=== PATIENT | female | born 1990 | race Caucasian/White ===

== ENCOUNTER 2021-05-08 09:53 | Outpatient (CLI) | payer BC ==
[2021-05-08 14:49] LABS: Mean Corpuscular HGB CONC 32.1 g/dL (32.0-36.0); Mean Corpuscular Hemoglobin 29.3 pg (27.0-33.0); Mean Corpuscular Volume 91.4 fl (81.6-98.3); Platelet Count 271 10x3/uL (150-450); RBC Distribution Width 15.4 % (11.5-14.5); Red Blood Cell (RBC) Count 4.09 10x6/uL (3.90-5.03); White Blood Cell (WBC) Count 10.7 10x3/uL (3.5-10.5)
[2021-05-08 15:22] LABS: Hep B Surf Ag Non-Reactive S/CO (NonReactive); Syphilis Antibody Nonreactive (Nonreactive); Syphilis Antibody Index 0.05 S/CO (<1.00 Non-Reactive)
[2021-05-08 15:40] LABS: HBSAg Index 0.23 S/CO (0-0.99)
[2021-05-08 23:46] LABS: SARS-CoV-2 PCR by NAA Not Detected (NotDetected)
== END 2021-05-08 09:54 | disposition home or self-care (01) ==
LOC: CSHLAB 09:53
PROVIDERS: ATTEND Obstetrics & Gynecology
DX: Z01.812 Encounter for preprocedural laboratory examination (principal); Z20.822 Contact with and (suspected) exposure to COVID-19
CPT/HCPCS: 85027; 86762; 86780; 86900; 86901; 87340; U0003; U0005

== ENCOUNTER 2021-05-12 05:38 | Inpatient (IN) | payer BC ==
[2021-05-12] MEDS ORDERED: Promethazine HCl 25 MG/ML VIAL IM PRN ×2 (05:42→09:36)
[2021-05-12] MEDS ORDERED: Ondansetron PF 4 MG/2 ML Vial IVP PRN ×3 (05:42→11:50)
[2021-05-12] MEDS ORDERED: Lactated Ringer's 1,000 ML IV SCH (05:42)
[2021-05-12] MEDS ORDERED: Famotidine/PF 20 mg/2ml Vial SLOW IVP PRN (05:42)
[2021-05-12] MEDS ORDERED: Bicitra 30 ML UDCUP PO PRN (05:42)
[2021-05-12] MEDS ORDERED: hydrALAZINE 20 MG/ML VIAL SLOW IVP PRN ×2 (05:42→11:50)
[2021-05-12] MEDS ORDERED: ceFAZolin 2 GM/Dextrose 50 ML 2 GM in Premix Bag 1 BAG IVPB SCH (05:45)
[2021-05-12 05:46] VITALS: BMI 50.9
[2021-05-12] MEDS ORDERED: Oxytocin 10 UNITS/ML VIAL ONE (07:21)
[2021-05-12] MEDS ORDERED: Morphine PF 10 MG/10 ML VIAL ONE (07:21)
[2021-05-12 07:22] LABS: Hemoglobin 10.9 g/dL (12.0-15.5); Mean Corpuscular HGB CONC 32.1 g/dL (32.0-36.0); Mean Corpuscular Hemoglobin 29.5 pg (27.0-33.0); Mean Corpuscular Volume 92.1 fl (81.6-98.3); Mean Platelet Volume 11.3 fl (7.4-10.4); Platelet Count 231 10x3/uL (150-450); RBC Distribution Width 15.1 % (11.5-14.5); Red Blood Cell (RBC) Count 3.69 10x6/uL (3.90-5.03); White Blood Cell (WBC) Count 9.9 10x3/uL (3.5-10.5)
[2021-05-12] MEDS ORDERED: PHENYLEPHRINE-NS 100 MCG/ML 10 ML SYRINGE ONE (07:22)
[2021-05-12] MEDS ORDERED: Ondansetron PF 4 MG/2 ML Vial ONE (08:10)
[2021-05-12] MEDS ORDERED: Lidocaine 1% PF 5 ML VIAL ONE (08:31)
[2021-05-12] MEDS ORDERED: Dexamethasone 4 mg/ml Vial ONE (08:41)
[2021-05-12] MEDS ORDERED: Ketorolac Tromethamine 30 MG/ML VIAL ONE (08:43)
[2021-05-12] MEDS ORDERED: diphenhydrAMINE 50 MG/ML VIAL IVP PRN (09:36)
[2021-05-12] MEDS ORDERED: Meperidine HCl/PF 25 MG/ML VIAL SLOW IVP PRN (09:36)
[2021-05-12] MEDS ORDERED: Naloxone HCl 0.4 mg/ml Vial IVP PRN ×2 (09:36)
[2021-05-12] MEDS ORDERED: Fentanyl 100 MCG/2 ML VIAL SLOW IVP PRN (09:36)
[2021-05-12] MEDS ORDERED: Naloxone HCl 0.4 mg/ml Vial IV PRN (09:36)
[2021-05-12] MEDS ORDERED: Promethazine HCl 25 MG SUPP PR PRN (09:36)
[2021-05-12] MEDS ORDERED: Hydrocerin (Eucerin) Cream 120 gm Jar TOP PRN (09:36)
[2021-05-12] MEDS ORDERED: Ondansetron HCl/PF 4 MG/2 ML Vial IVP PRN (09:36)
[2021-05-12] MEDS ORDERED: Ketorolac Tromethamine 30 MG/ML VIAL IVP SCH (09:45)
[2021-05-12] MEDS ORDERED: Communication Order-Pharmacy FS SCH (09:45)
[2021-05-12] MEDS ORDERED: Bisacodyl 10 MG SUPP PR PRN (11:50)
[2021-05-12] MEDS ORDERED: diphenhydrAMINE 25 MG CAP PO PRN (11:50)
[2021-05-12] MEDS ORDERED: Simethicone Chewable 80 MG TAB PO PRN (11:50)
[2021-05-12] MEDS ORDERED: Lanolin Ointment 7 GM TUBE TOP PRN (11:50)
[2021-05-12] MEDS ORDERED: Acetaminophen 325 MG TAB PO PRN (11:50)
[2021-05-12] MEDS ORDERED: NS w/ Oxytocin 30 units 500 ML ONE (11:53)
[2021-05-12] MEDS ORDERED: Docusate 100 MG CAP PO SCH (12:00)
[2021-05-12] MEDS ORDERED: Prenatal Vitamin 1 TAB PO SCH (12:00)
[2021-05-12] MEDS ORDERED: Ferrous Sulfate 325 MG TAB PO SCH (12:00)
[2021-05-12] MEDS: Ketorolac Tromethamine 30 MG/ML VIAL IVP PRN (16:23)
[2021-05-12] MEDS: Labetalol HCl 100 MG TAB PO SCH ×2 (16:23→23:00)
[2021-05-12] MEDS ORDERED: HYDROcodone/Acetaminophen 5/325 mg Tablet PO PRN (21:45)
[2021-05-12] MEDS: Docusate 100 MG CAP PO SCH (21:55)
[2021-05-13] MEDS: Ferrous Sulfate 325 MG TAB PO SCH ×3 (00:35→21:55)
[2021-05-13] MEDS: Ketorolac Tromethamine 30 MG/ML VIAL IVP PRN (04:23)
[2021-05-13 05:58] LABS: Hemoglobin 9.8 g/dL (12.0-15.5); Mean Corpuscular HGB CONC 32.3 g/dL (32.0-36.0); Mean Corpuscular Hemoglobin 30.1 pg (27.0-33.0); Mean Corpuscular Volume 92.9 fl (81.6-98.3); Mean Platelet Volume 11.2 fl (7.4-10.4); Platelet Count 191 10x3/uL (150-450); RBC Distribution Width 15.2 % (11.5-14.5); Red Blood Cell (RBC) Count 3.26 10x6/uL (3.90-5.03); White Blood Cell (WBC) Count 9.3 10x3/uL (3.5-10.5)
[2021-05-13] MEDS: Docusate 100 MG CAP PO SCH ×2 (09:00→21:55)
[2021-05-13] MEDS: Labetalol HCl 100 MG TAB PO SCH ×3 (09:01→21:51)
[2021-05-13] MEDS: Prenatal Vitamin 1 TAB PO SCH (09:01)
[2021-05-13] MEDS: HYDROcodone/Acetaminophen 5/325 mg Tablet PO PRN ×4 (09:03→22:38)
[2021-05-13] MEDS ORDERED: Boostrix 0.5 ML (Tdap) VIAL IM ONE (11:50)
[2021-05-13] MEDS ORDERED: Varicella virus, LIVE 0.5 ML VIAL SC ONE (11:50)
[2021-05-13] MEDS ORDERED: Measles/Mumps/Rubella 10 MCG/0.5 ML VIAL SC ONE (11:50)
[2021-05-13] MEDS: Ibuprofen 800 MG TAB PO SCH (21:55)
[2021-05-14] MEDS: Ibuprofen 800 MG TAB PO SCH (05:23)
[2021-05-14 07:53] VITALS: TEMP 97.5
[2021-05-14] MEDS: Docusate 100 MG CAP PO SCH (09:21)
[2021-05-14] MEDS: Ferrous Sulfate 325 MG TAB PO SCH (09:21)
[2021-05-14] MEDS: Prenatal Vitamin 1 TAB PO SCH (09:21)
[2021-05-14 11:47] VITALS: BP 136/73
[2021-05-14] MEDS: Labetalol HCl 100 MG TAB PO SCH (13:39)
== END 2021-05-14 13:35 | disposition home or self-care (01) | DRG 788 ==
LOC: CSHLD 05:38 → CSHPP 11:32
PROVIDERS: ADMIT Obstetrics & Gynecology; ATTEND Obstetrics & Gynecology
PROC: 10D00Z1 Extraction of Products of Conception, Low, Open Approach (ICD-10-PCS; principal; 2021-05-12)
DX: O34.211 Maternal care for low transverse scar from previous cesarean delivery (principal); Z3A.39 39 weeks gestation of pregnancy; Z37.0 Single live birth; O13.4 Gestational [pregnancy-induced] hypertension without significant proteinuria, complicating childbirth; O99.02 Anemia complicating childbirth; D64.9 Anemia, unspecified; Z79.899 Other long term (current) drug therapy; Z79.82 Long term (current) use of aspirin; Z90.89 Acquired absence of other organs; O69.81X0 Labor and delivery complicated by cord around neck, without compression, not applicable or unspecified
CPT/HCPCS: 36415; 51702; 85027; 86850; 86900; 86901; J0690; J1100; J1885; J2274; J2405; J2550; J2590